=== PATIENT | male | born 1995 | race African-American/Black ===

== ENCOUNTER 2019-08-04 19:39 | Emergency (ER) | payer MEDICAID, SELFPAY ==
--- NOTE | 2019-08-04 20:40 | RAD ---
EXAM: Chest PA and lateral: HISTORY: Cough. COMPARISON: None. FINDINGS: Heart: Normal cardiac silhouette Aorta: Unremarkable Pulmonary vessels: Normal Costophrenic angles: Costophrenic angles are clear. Lungs: No consolidation or masses. Pneumothorax: No pneumothorax Osseous structures: No osseous abnormalities IMPRESSION: No acute cardiopulmonary process.
== END 2019-08-04 20:56 | disposition home or self-care (01) ==
LOC: ERS 19:39
DX: J06.9 Acute upper respiratory infection, unspecified (principal)
CPT/HCPCS: 71046; 87804